=== PATIENT | female | born 1940 | race African-American/Black ===

== ENCOUNTER 2018-04-26 15:56 | Inpatient (IN) | payer MEDICARE, MEDICAID ==
[~2018-04-26] VITALS: Ht 160 cm; Wt 77.6 kg
[~2018-04-26 15:56] MED LIST: CILO100T PO; GABA-531 PO; LOVA20TA2 PO; QVAR80 IH
[2018-04-26] MEDS ORDERED: ASPIRIN 81MG TABLET PO ONE (22:00)
[2018-04-26 22:02] LABS: BASOPHILS % 1.2 % (0.0-2.0); EOSINOPHILS % 2.7 % (0.0-5.0); HEMATOCRIT. 27.3 % (36.0-48.0); HEMOGLOBIN. 8.5 g/dL (12.0-16.0); LYMPHOCYTES % 27.7 % (20.0-50.0); MEAN CORPUSCULAR HEMOGLOBIN 27.2 pg (28.0-32.0); MEAN CORPUSCULAR VOLUME 87.1 fL (81.0-99.0); MEAN PLATELET VOLUME 8.3 fl (7.4-10.4); MONOCYTES % 7.3 % (2.0-8.0); NEUTROPHILS % 61.1 % (40.0-76.0); PLATELET 257 x1000/uL (130-400); RED BLOOD CELL COUNT 3.13 mill/uL (4.2-5.4); RED CELL DISTRIBUTION WIDTH 18.1 % (11.6-14.6)
[2018-04-26 22:08] LABS: CHLORIDE 112 mEq/L (98-107)
[2018-04-27] MEDS ORDERED: TRAMADOL 50MG TABLET PO PRN (00:15)
[2018-04-27] MEDS ORDERED: CLONIDINE 0.1MG TABLET PO PRN (00:15)
[2018-04-27] MEDS ORDERED: ONDANSETRON HCL 4MG/2ML INJ IV PRN (00:15)
[2018-04-27 04:22] VITALS: BP 127/65
[2018-04-27] MEDS ORDERED: CLOP75TA16 PO (04:27)
[2018-04-27] MEDS ORDERED: ACET-2178 PO (04:27)
[2018-04-27] MEDS ORDERED: BACL-141 PO (04:27)
[2018-04-27] MEDS ORDERED: FERR325T6 PO (04:27)
[2018-04-27] MEDS ORDERED: GLIM2TAB2 PO (04:27)
[2018-04-27] MEDS ORDERED: LOSA1TAB37 PO (04:27)
[2018-04-27] MEDS ORDERED: INDO50CA14 PO (04:27)
[2018-04-27] MEDS ORDERED: CILO100T PO (04:27)
[2018-04-27] MEDS ORDERED: GABA-531 PO (04:27)
[2018-04-27] MEDS ORDERED: DEXTROSE 50% WATER 50ML SYRINGE IV PRN (04:30)
[2018-04-27 04:49] VITALS: BP 127/65
[2018-04-27] MEDS: BLOOD SUGAR DIAGNOSTIC STRIP TEST SCH ×3 (06:27→21:15)
[2018-04-27] MEDS: INSULIN LISPRO 100 UNITS/ML SUBCUT SCH ×3 (07:50→21:00)
[2018-04-27] MEDS: ENOXAPARIN 40MG/0.4ML SYR SUBCUT SCH (08:54)
[2018-04-27] MEDS: IPRATROPIUM/ALBUTEROL 0.5-3(2.5)MG/3ML NEB INH SCH ×3 (09:01→20:49)
[2018-04-27 09:21] LABS: TOTAL IRON BINDING CAPACITY 376 ug/dL (250-450)
[2018-04-27 12:00] VITALS: BP 130/60
[2018-04-27 13:44] LABS: CLARITY URINE CLEAR (CLEAR); COLOR URINE YELLOW (YELLOW); KETONES URINE NEGATIVE (NEGATIVE); LEUKOCYTE ESTERASE URINE NEGATIVE (NEGATIVE); NITRITE URINE NEGATIVE (NEGATIVE); OCCULT BLOOD URINE NEGATIVE (NEGATIVE); PROTEIN URINE NEGATIVE (NEGATIVE); SPECIFIC GRAVITY URINE 1.012 (1.005-1.030); UROBILINOGEN URINE 0.2 E.U./dL (0.2-1.0)
[2018-04-27 13:59] LABS: *AMPHETAMINES SCREEN URINE NEGATIVE (NEGATIVE); *BARBITURATES SCREEN URINE NEGATIVE (NEGATIVE); *BENZODIAZEPINES SCREEN URINE NEGATIVE (NEGATIVE); *COCAINE SCREEN URINE NEGATIVE (NEGATIVE); METHADONE URINE SCREEN NEGATIVE (NEGATIVE); OPIATES URINE SCREEN NEGATIVE (NEGATIVE)
[2018-04-27 14:00] LABS: CANNABINOID URINE SCREEN NEGATIVE (NEGATIVE); PHENCYCLIDINE URINE SCREEN NEGATIVE (NEGATIVE)
[2018-04-27 16:00] VITALS: BP 141/44
[2018-04-27 20:00] VITALS: BP 156/53
[2018-04-27] MEDS: METOPROLOL TARTRATE 25MG TABLET PO SCH (21:12)
[2018-04-27] MEDS: ACETAMINOPHEN 325MG TABLET PO PRN (21:14)
[2018-04-27] MEDS: GABAPENTIN 300MG CAPSULE PO SCH (22:19)
[2018-04-28] VITALS: BP 138/53
[2018-04-28] MEDS: IPRATROPIUM/ALBUTEROL 0.5-3(2.5)MG/3ML NEB INH SCH ×4 (01:01→20:50)
[2018-04-28 04:00] VITALS: BP 130/56
[2018-04-28] MEDS: BLOOD SUGAR DIAGNOSTIC STRIP TEST SCH ×4 (06:24→21:00)
[2018-04-28 07:29] LABS: BASOPHILS % 0.9 % (0.0-2.0); EOSINOPHILS % 3.6 % (0.0-5.0); HEMATOCRIT. 24.9 % (36.0-48.0); HEMOGLOBIN. 7.8 g/dL (12.0-16.0); LYMPHOCYTES % 26.5 % (20.0-50.0); MEAN CORPUSCULAR HEMOGLOBIN 27.2 pg (28.0-32.0); MEAN CORPUSCULAR VOLUME 87.3 fL (81.0-99.0); MONOCYTES % 9.8 % (2.0-8.0); NEUTROPHILS % 59.2 % (40.0-76.0); PLATELET 224 x1000/uL (130-400); RED BLOOD CELL COUNT 2.85 mill/uL (4.2-5.4); RED CELL DISTRIBUTION WIDTH 17.4 % (11.6-14.6)
[2018-04-28] MEDS: ACETAMINOPHEN 325MG TABLET PO PRN (07:39)
[2018-04-28] MEDS: INSULIN LISPRO 100 UNITS/ML SUBCUT SCH ×4 (07:50→21:00)
[2018-04-28 08:00] VITALS: BP 141/53
[2018-04-28] MEDS: GABAPENTIN 300MG CAPSULE PO SCH ×2 (08:22→17:41)
[2018-04-28] MEDS: METOPROLOL TARTRATE 25MG TABLET PO SCH ×2 (08:23→21:23)
[2018-04-28] MEDS: ENOXAPARIN 40MG/0.4ML SYR SUBCUT SCH (08:25)
[2018-04-28 13:00] VITALS: BP 127/51
[2018-04-28 16:59] VITALS: BP 105/54
[2018-04-28 19:26] LABS: HEMATOCRIT 24.9 % (36.0-48.0); HEMOGLOBIN 7.7 g/dL (12.0-16.0)
[2018-04-28 20:00] VITALS: BP 134/54
[2018-04-28 20:34] LABS: TOTAL IRON BINDING CAPACITY 363 ug/dL (250-450)
[2018-04-29] VITALS: BP 121/50
[2018-04-29] MEDS: IPRATROPIUM/ALBUTEROL 0.5-3(2.5)MG/3ML NEB INH SCH ×3 (03:15→20:30)
[2018-04-29 04:00] VITALS: BP 108/49
[2018-04-29] MEDS: BLOOD SUGAR DIAGNOSTIC STRIP TEST SCH ×4 (06:09→20:49)
[2018-04-29 06:32] LABS: HEMATOCRIT 25.2 % (36.0-48.0); HEMOGLOBIN 7.8 g/dL (12.0-16.0); MEAN CORPUSCULAR HEMOGLOBIN 26.8 pg (28.0-32.0); MEAN CORPUSCULAR VOLUME 86.8 fL (81.0-99.0); PLATELET 244 x1000/uL (130-400); RED CELL DISTRIBUTION WIDTH 17.6 % (11.6-14.6)
[2018-04-29] MEDS: INSULIN LISPRO 100 UNITS/ML SUBCUT SCH ×4 (07:36→20:55)
[2018-04-29 08:00] VITALS: BP 135/60
[2018-04-29] MEDS: GABAPENTIN 300MG CAPSULE PO SCH ×3 (08:08→16:54)
[2018-04-29] MEDS: METOPROLOL TARTRATE 25MG TABLET PO SCH ×2 (08:08→21:00)
[2018-04-29] MEDS: ENOXAPARIN 40MG/0.4ML SYR SUBCUT SCH (09:00)
[2018-04-29] MEDS: IRON SUCROSE COMPLEX 100 MG/5 ML ML IV SCH (11:43)
[2018-04-29 12:00] VITALS: BP 112/44
[2018-04-29 16:00] VITALS: BP 108/39
[2018-04-29] MEDS ORDERED: SORBITOL 70% SOLN 30ML PO NR ×2 (16:00→20:00)
[2018-04-29 17:26] LABS: HEMATOCRIT 24.5 % (36.0-48.0); HEMOGLOBIN 7.7 g/dL (12.0-16.0)
[2018-04-29 20:00] VITALS: BP 108/60
[2018-04-29] MEDS ORDERED: POTASSIUM CHLORIDE 20MEQ TABLET SR PO NR (23:30)
[2018-04-30] VITALS: BP 123/48
[2018-04-30] MEDS: IPRATROPIUM/ALBUTEROL 0.5-3(2.5)MG/3ML NEB INH SCH ×3 (02:01→20:05)
[2018-04-30 04:00] VITALS: BP 107/36
[2018-04-30] MEDS ORDERED: SORBITOL 70% SOLN 30ML PO NR (06:00)
[2018-04-30] MEDS: BLOOD SUGAR DIAGNOSTIC STRIP TEST SCH ×3 (06:15→20:42)
[2018-04-30 07:01] LABS: INR 1.1; PROTHROMBIN TIME 10.8 sec (9.1-11.1)
[2018-04-30 07:10] LABS: BASOPHILS % 0.7 % (0.0-2.0); EOSINOPHILS % 0.9 % (0.0-5.0); HEMATOCRIT. 26.2 % (36.0-48.0); HEMOGLOBIN. 8.1 g/dL (12.0-16.0); LYMPHOCYTES % 17.6 % (20.0-50.0); MEAN CORPUSCULAR HEMOGLOBIN 27.1 pg (28.0-32.0); MEAN CORPUSCULAR VOLUME 87.5 fL (81.0-99.0); MONOCYTES % 9.2 % (2.0-8.0); NEUTROPHILS % 71.6 % (40.0-76.0); PLATELET 252 x1000/uL (130-400); RED BLOOD CELL COUNT 2.99 mill/uL (4.2-5.4)
[2018-04-30] MEDS: INSULIN LISPRO 100 UNITS/ML SUBCUT SCH ×4 (07:50→20:42)
[2018-04-30 08:00] VITALS: BP 102/43
[2018-04-30] MEDS: PANTOPRAZOLE SODIUM 40 MG/VIAL IV SCH (08:37)
[2018-04-30] MEDS: METOPROLOL TARTRATE 25MG TABLET PO SCH ×3 (08:38→20:58)
[2018-04-30] MEDS: GABAPENTIN 300MG CAPSULE PO SCH ×2 (08:39→17:23)
[2018-04-30] MEDS ORDERED: BACTERIOSTATIC SODIUM CHLORIDE 0.9% 30ML VIAL IJ ONE (10:10)
[2018-04-30] MEDS ORDERED: SIMETHICONE 40 MG/0.6 ML 30ML ONE ×2 (10:10→10:35)
[2018-04-30] MEDS ORDERED: MIDAZOLAM HCL 5 MG/5 ML VIAL ONE (10:35)
[2018-04-30] MEDS ORDERED: FENTANYL CITRATE/PF 50MCG/ML 2ML VIAL ONE (10:36)
[2018-04-30] MEDS ORDERED: MIDAZOLAM HCL 5 MG/5 ML VIAL IV PRN (10:49)
[2018-04-30] MEDS ORDERED: FENTANYL CITRATE/PF 50MCG/ML 2ML VIAL IV PRN (10:50)
[2018-04-30 12:00] VITALS: BP 115/27
[2018-04-30] MEDS: IRON SUCROSE COMPLEX 100 MG/5 ML ML IV SCH (13:21)
[2018-04-30 16:00] VITALS: BP 106/61
[2018-04-30] MEDS: FERROUS SULFATE 325MG TABLET PO SCH (17:23)
[2018-04-30 20:00] VITALS: BP 118/51
[2018-04-30] MEDS ORDERED: SODIUM POLYSTYRENE SULFONATE 15 G/60 ML BOT PO ONE (20:00)
[2018-04-30] MEDS: ACETAMINOPHEN 325MG TABLET PO PRN (20:50)
[2018-05-01] VITALS: BP 123/52
[2018-05-01] MEDS: IPRATROPIUM/ALBUTEROL 0.5-3(2.5)MG/3ML NEB INH SCH ×3 (01:25→14:13)
[2018-05-01 04:00] VITALS: BP 135/58
[2018-05-01] MEDS: BLOOD SUGAR DIAGNOSTIC STRIP TEST SCH ×2 (06:20→13:13)
[2018-05-01 07:23] LABS: BASOPHILS % 0.6 % (0.0-2.0); EOSINOPHILS % 2.1 % (0.0-5.0); HEMATOCRIT. 24.8 % (36.0-48.0); HEMOGLOBIN. 7.6 g/dL (12.0-16.0); LYMPHOCYTES % 18.6 % (20.0-50.0); MEAN CORPUSCULAR HEMOGLOBIN 26.6 pg (28.0-32.0); MEAN CORPUSCULAR VOLUME 87.3 fL (81.0-99.0); MEAN PLATELET VOLUME 9.1 fl (7.4-10.4); MONOCYTES % 8.6 % (2.0-8.0); NEUTROPHILS % 70.1 % (40.0-76.0); PLATELET 228 x1000/uL (130-400); RED BLOOD CELL COUNT 2.85 mill/uL (4.2-5.4)
[2018-05-01] MEDS: INSULIN LISPRO 100 UNITS/ML SUBCUT SCH ×2 (07:49→12:50)
[2018-05-01] MEDS: PANTOPRAZOLE SODIUM 40 MG/VIAL IV SCH (09:24)
[2018-05-01] MEDS: GABAPENTIN 300MG CAPSULE PO SCH (09:24)
[2018-05-01] MEDS: FERROUS SULFATE 325MG TABLET PO SCH (09:24)
[2018-05-01] MEDS: IRON SUCROSE COMPLEX 100 MG/5 ML ML IV SCH (13:13)
[2018-05-01 13:38] VITALS: BP 138/63
== END 2018-05-01 18:19 | disposition home or self-care (01) | DRG 305 ==
LOC: ER 15:56 → 6WST 04-27 00:21 → EDBEDREQDT 04-27 00:25 → EDBEDREQTM 04-27 00:25 → EDBEDREQ 04-27 00:25 → ENRESERV 04-27 00:37
PROVIDERS: ADMIT Internal Medicine Nephrology; ATTEND Internal Medicine Nephrology
PROC: 0DB98ZX Excision of Duodenum, Via Natural or Artificial Opening Endoscopic, Diagnostic (ICD-10-PCS; principal; 2018-04-30)
PROC: 0DB68ZX Excision of Stomach, Via Natural or Artificial Opening Endoscopic, Diagnostic (ICD-10-PCS; 2018-04-30)
PROC: 0DJD8ZZ Inspection of Lower Intestinal Tract, Via Natural or Artificial Opening Endoscopic (ICD-10-PCS; 2018-04-30)
DX: I16.1 Hypertensive emergency (principal); N17.9 Acute kidney failure, unspecified; R07.89 Other chest pain; K29.50 Unspecified chronic gastritis without bleeding; E66.01 Morbid (severe) obesity due to excess calories; E78.5 Hyperlipidemia, unspecified; N18.2 Chronic kidney disease, stage 2 (mild); M19.012 Primary osteoarthritis, left shoulder; E78.00 Pure hypercholesterolemia, unspecified; E11.22 Type 2 diabetes mellitus with diabetic chronic kidney disease; I25.10 Atherosclerotic heart disease of native coronary artery without angina pectoris; D50.9 Iron deficiency anemia, unspecified; K64.4 Residual hemorrhoidal skin tags; E11.51 Type 2 diabetes mellitus with diabetic peripheral angiopathy without gangrene; I13.10 Hypertensive heart and chronic kidney disease without heart failure, with stage 1 through stage 4 chronic kidney disease, or unspecified chronic kidney disease; J45.909 Unspecified asthma, uncomplicated; K64.8 Other hemorrhoids; E11.42 Type 2 diabetes mellitus with diabetic polyneuropathy; K55.20 Angiodysplasia of colon without hemorrhage; Z87.891 Personal history of nicotine dependence; Z79.4 Long term (current) use of insulin; Z79.02 Long term (current) use of antithrombotics/antiplatelets; Z79.899 Other long term (current) drug therapy; Z85.41 Personal history of malignant neoplasm of cervix uteri; Z88.6 Allergy status to analgesic agent; Z91.013 Allergy to seafood
CPT/HCPCS: 36415; 71045; 73030; 76770; 80048; 80305; 82270; 82668; 82962; 83540; 83550; 83880; 84484; 85014; 85018; 85027; 86850; 86870; 86900; 86920; 88305; 88312; 88313; 93005; 93306; 93970; 94640; 96372; 97162; 97166; 99152; 99285; C1893; C9113; J1650; J1815; J2250; J3010; J3490; J7050; J7620; G0500